=== PATIENT | male | born 1945 | race Caucasian/White ===

== ENCOUNTER 2016-11-20 05:42 | Inpatient (IN) | payer MEDICARE, BC ==
[~2016-11-20 05:42] MED LIST: ASPIR 8181 M1 PO; ASPIRIN81 MG; ATENOLOL; FLOMAX0.4 M1 PO; FLONASE ALLERG9.9 ML; IRON240 MG PO; LEVAQUIN500 MG PO; NATURAL VITA200 UNIT PO; NORCO 5/325 TAB1 TAB PO; PROBIOTIC1 EAC4 PO; SYNTHROID50 MC1 PO; TENORMIN25 M1 PO; VITAMIN E PO; ZOCOR10 M1 PO; ZOCOR10 MG; ZOCOR5 MG
[2016-11-20 06:11] LABS: URINE BILIRUBIN NEGATIVE (NEG); URINE BLOOD SMALL (NEG); URINE GLUCOSE (UA) NEGATIVE (NEG); URINE KETONE NEGATIVE (NEG); URINE LEUKOCYTE ESTERASE NEGATIVE (NEG); URINE NITRITE NEGATIVE (NEG); URINE PROTEIN NEGATIVE (NEG)
[2016-11-20 06:15] LABS: URINE APPEARANCE CLEAR; URINE COLOR YELLOW
[2016-11-20 06:23] LABS: URINE EPITHELIAL CELLS 0 /[HPF] (0-10); URINE WBC 0 /[HPF] (0-5)
[2016-11-20 20:36] LABS: HGB-HEMOGLOBIN 12.3 gm/dl (13.5-17.0); PLATELET COUNT 201 tho/cmm (150-450)
[2016-11-20 20:38] LABS: INR 1.1 INR (0.9-1.1); PROTHROMBIN TIME 12.6 SECONDS (9.0-13.6)
[2016-11-20 20:46] LABS: CREATININE 1.14 mg/dl (0.60-1.30); eGFR VALUE FOR BLACK 74 mL/Min
[2016-11-21 06:44] LABS: BASO % 0.2 % (0-2); EOS % 0.1 % (0-7); HCT-HEMATOCRIT 31.5 % (36.0-53.5); HGB-HEMOGLOBIN 10.7 gm/dl (13.5-17.0); IMMATURE GRANULOCYTES ABSOLUTE 0.03 tho/cmm (0-0.03); IMMATURE GRANULOCYTES PERCENT 0.2 % (0-0.3); LYMPH % 10.8 % (20-45); LYMPH ABSOLUTE COUNT 1.4 tho/cmm (0.8-4.5); MCV (MEAN CELL VOLUME) 88.2 fl (82.0-96.0); MEAN PLATELET VOLUME 10.7 cmc (9.4-12.4); MONO % 7.7 % (0-12); NEUTROPHIL ABSOLUTE COUNT 10.7 tho/cmm (1.6-8.0); NEUTROPHIL-AUTOMATED 10.7 tho/cmm (1.6-8.0); PLATELET COUNT 196 tho/cmm (150-450); RED BLOOD COUNT 3.57 mil/cmm (4.40-5.70); RED CELL DISTRIBUTION WIDTH 13.1 % (12.4-16.4); WHITE BLOOD COUNT 13.2 tho/cmm (4.0-10.0)
[2016-11-21 06:48] LABS: INR 1.1 INR (0.9-1.1)
[2016-11-22 06:44] LABS: HGB-HEMOGLOBIN 10.6 gm/dl (13.5-17.0); PLATELET COUNT 176 tho/cmm (150-450)
[2016-11-23] MEDS ORDERED: CYCLOBENZAPRINE10 M1 PO (14:17)
[2016-11-23] MEDS ORDERED: NORCO 7.5-3251 EACH PO (14:19)
[2016-11-23] MEDS ORDERED: SENNA-S TABLET1 EAC3 PO (14:20)
== END 2016-11-23 15:48 | DRG 455 ==
LOC: SHSB 05:42 → ORE 07:37 → PACU 15:52 → 5EA 17:15
PROVIDERS: ADMIT Orthopaedic Surgery
PROC: 0SG00A0 Fusion of Lumbar Vertebral Joint with Interbody Fusion Device, Anterior Approach, Anterior Column, Open Approach (ICD-10-PCS; principal; 2016-11-20)
PROC: 0SG00A1 (ICD-10-PCS; 2016-11-20)
PROC: 0SB20ZZ Excision of Lumbar Vertebral Disc, Open Approach (ICD-10-PCS; 2016-11-20)
DX: M47.26 Other spondylosis with radiculopathy, lumbar region (principal); M41.9 Scoliosis, unspecified; I10 Essential (primary) hypertension; M43.16 Spondylolisthesis, lumbar region; E03.9 Hypothyroidism, unspecified; Z85.828 Personal history of other malignant neoplasm of skin
CPT/HCPCS: C1713; J0690; J1170; J1650; J2250; J3370; J7040